=== PATIENT | female | born 1975 | race Two or more races ===

== ENCOUNTER 2019-12-16 09:01 | Outpatient (CLI) | payer OTHER | END 2019-12-16 10:30 | disposition home or self-care (01) | LOC: OFIC 805 09:01 | PROVIDERS: ATTEND Otolaryngology | DX: J34.89 Other specified disorders of nose and nasal sinuses (principal); J30.89 Other allergic rhinitis; R22.1 Localized swelling, mass and lump, neck; R09.82 Postnasal drip; R49.0 Dysphonia; R09.81 Nasal congestion ==